=== PATIENT | female | born 1995 | race Caucasian/White ===

== ENCOUNTER 2024-04-26 13:59 | Emergency (ER) | payer BC, SELFPAY ==
[2024-04-26 14:02] VITALS: BP 123/75
[2024-04-26 14:23] LABS: % Basophils 0.2 % (0-2); % Immature Granulocytes 0.4 % (0-0.5); % Lymphocytes 2.3 % (20.5-51.1); % Monocytes 2.1 % (1.7-9.3); Absolute Lymphocytes 0.3 10^3/uL (1.2-3.4); Absolute Monocytes 0.2 10^3/uL (0.1-0.6); Absolute Neutrophils 10.2 10^3/uL (1.4-6.5); Hematocrit 42.1 % (37.0-47.0); Hemoglobin 14.1 g/dL (12.0-16.0); Mean Corp Hgb Conc. 33.5 g/dL (33.0-37.0); Mean Corpuscular Hgb 28.3 pg (27.0-31.0); Mean Corpuscular Volume 84.5 fL (81.0-99.0); Mean Platelet Volume 9.6 fL (7.4-10.4); Nucleated Red Blood Cells % 0 %; Platelet Count 252 10^3/uL (130-400); Red Blood Cell Count 4.98 10^6/uL (4.20-5.40); Red Cell Dist. Width 12.8 % (11.5-14.5); White Blood Cell Count 10.7 10^3/uL (4.8-10.8)
[2024-04-26 14:39] LABS: ALT (SGPT) 19 U/L (0-35); AST (SGOT) 20 U/L (14-36); Albumin 4.7 g/dl (3.5-5.0); Alkaline Phosphatase 89 U/L (38-126); Blood Urea Nitrogen 15 mg/dl (7-17); Carbon Dioxide 20 mmol/L (22-30); Chloride 102 mmol/L (98-107); Glucose 119 mg/dl (70-99); Potassium 4.3 mmol/L (3.5-5.1); Sodium 137 mmol/L (135-145); Total Bilirubin 0.9 mg/dl (0.2-1.3); Total Protein 7.8 g/dl (6.3-8.2); eGFR > 60.00
--- NOTE | 2024-04-26 15:05 | ED.GENMED ---
History of Present Illness
<FARHAD Ramírez - Last Filed: 04/27/24 10:25>
General
Chief Complaint: Abdominal Symptoms
Source: patient
Exam Limitations: none
Time Seen by Provider: 04/26/24 14:52
Nursing documentation reviewed up to this point in time: agreed with
History of Present Illness
History of Present Illness:
28 yr old female presents to the ER for evaluation. Patient reports she is 11 weeks and started vomiting around 1 AM and is vomited greater than 10 times. She also had diarrhea at 6 AM. She has been very nauseous since. She previously
had some nausea with this was on performed Zofran however because the nausea started becoming worse yesterday she called her [facility] [employer] [facility] [facility] and was given 8 mg of Zofran. She did take 8 mg Zofran at 12:30 PM. She has not vomited since then but
she does complain of feeling very nauseous and feels like she has to have more diarrhea. She complains of feeling achy all over and has low back pain. She denies any fever chills back pain. She denies any fever chills. Her 1-year-old also had a
little bit of vomiting and diarrhea.
Patient has a history of 1 prior with complications. Patient had TRAP sequence in the past. She has a normal ultrasound with this . She is followed at [facility].
Past History
<FARHAD Ramírez - Last Filed: 04/27/24 10:25>
Past History
ED Past Medical History: None
ED Past Surgical History: None
Social History
Tobacco: Non-smoker
Alcohol: None
Personal: Single
Living: with family
Employment: Student
Review of Systems
<FARHAD Ramírez - Last Filed: 04/27/24 10:25>
Review of Systems
Allergies reviewed?: Yes
Other source history: family
All Other Systems: ROS reviewed and negative except as documented in HPI and ROS
Constitutional: Reports no symptoms; Denies fever or chills
EENT: Reports no symptoms
Respiratory: Reports no symptoms
Cardiac: Reports no symptoms
ABD/GI: Reports nausea and vomiting
Musculoskeletal: Reports other (body aches )
Skin: Reports no symptoms
Neurological: Reports no symptoms
Psychiatric: Reports no symptoms
Phy Exam
<FARHAD Ramírez - Last Filed: 04/27/24 10:25>
General Physical Exam
General Presentation: no apparent distress
General age: appears stated age
General Skin: warm and dry
General Habitus: normal
General Mental: alert
General Hydration: appears well hydrated
Cardiovascular Exam
Cardiovascular Exam: regular rate/rhythm, no murmur and normal peripheral pulses
Pulmonary Exam
Pulmonary Exam: lungs clear and no respiratory distress
Neurological Exam
Neurological Exam: alert and oriented x3
Musculoskeletal Exam
Musculoskeletal Exam: full ROM
Skin Exam
Skin Exam: normal color and warm/dry
Course
<FARHAD Ramírez - Last Filed: 04/27/24 10:25>
Orders/Labs/Results
Orders:
Orders
04/26/24 14:13
Complete Blood Count/With Diff Urgent
Comprehensive Metabolic Panel Urgent
HCG, Beta Quantitative [Beta HCG Quantitative] Urgent
Is this a screen?: No
04/26/24 15:34
Ondansetron Injectable [Zofran] 4 mg IV NOW STA
04/26/24 15:45
Heart Tones ONCE
04/26/24 16:45
0.9% Sodium Chloride 1000 ml [Nss] 1,000 ml IV BOLUS
04/26/24 17:03
US 1st Trimester Urgent
Comment:
Reason For Exam: lower abd cramping
04/26/24 18:35
Ondansetron Injectable [Zofran] 4 mg IV NOW STA
04/26/24 19:00
UA Reflex to Culture [Urinalysis Reflex To Culture] Urgent
Date Specimen was Collected: 04/26/24
Time Specimen was Collected: 18:25
Urine Microscopic Reflex Cult Urgent
Urine Culture Urgent
PARAM Source: U
Specimen Description:
Date Specimen was Collected: 04/26/24
Time Specimen was Collected: 18:25
04/26/24 19:09
Vital Signs- Treatment ONCE
Frequency: Once
04/26/24 20:49
Urinalysis Reflex To Culture Urgent
Date Specimen was Collected: 04/26/24
Time Specimen was Collected: 20:48
Abnormal Lab Results
04/26/24 04/26/24 04/26/24
14:13 19:00 20:49
Absolute Neuts (auto) 10.2 H 10^3/uL
(1.4-6.5)
Absolute Lymphs (auto) 0.3 L 10^3/uL
(1.2-3.4)
Neutrophils % 95.0 H %
(42.2-75.2)
Lymphocytes % 2.3 L %
(20.5-51.1)
Carbon Dioxide 20 L mmol/L
(22-30)
Creatinine 0.5 L mg/dL
(0.6-1.0)
Glucose 119 H mg/dl
(70-99)
Urine Ketones 3+ A Trace A
(Negative) (Negative)
Ur Occult Blood Reflex 2+ A
(Negative)
Urine RBC 50-60 A /HPF
(0-2)
Urine Bacteria (Reflex) Moderate A
(Negative)
04/26/24 14:13
04/26/24 14:13
Vital Signs
Initial and Last Documented VS:
Initial Vital Signs
Temp Pulse Resp BP Pulse Ox
98.3 F 114 18 123/75 100
04/26/24 14:02 04/26/24 14:02 04/26/24 14:02 04/26/24 14:02 04/26/24 14:02
Last Documented Vital Signs
Temp Pulse Resp BP Pulse Ox
98.3 F 88 21 104/62 97
04/26/24 14:02 04/26/24 21:30 04/26/24 21:30 04/26/24 21:31 04/26/24 21:15
<Sarkis Beaulieu MD - Last Filed: 04/26/24 20:11>
Orders/Labs/Results
Orders:
Orders
04/26/24 14:13
Complete Blood Count/With Diff Urgent
Comprehensive Metabolic Panel Urgent
HCG, Beta Quantitative [Beta HCG Quantitative] Urgent
Is this a screen?: No
04/26/24 15:34
Ondansetron Injectable [Zofran] 4 mg IV NOW STA
04/26/24 15:45
Heart Tones ONCE
04/26/24 16:45
0.9% Sodium Chloride 1000 ml [Nss] 1,000 ml IV BOLUS
04/26/24 17:03
US 1st Trimester Urgent
Comment:
Reason For Exam: lower abd cramping
04/26/24 18:35
Ondansetron Injectable [Zofran] 4 mg IV NOW STA
04/26/24 19:00
UA Reflex to Culture [Urinalysis Reflex To Culture] Urgent
Date Specimen was Collected: 04/26/24
Time Specimen was Collected: 18:25
Urine Microscopic Reflex Cult Urgent
Urine Culture Urgent
PARAM Source: U
Specimen Description:
Date Specimen was Collected: 04/26/24
Time Specimen was Collected: 18:25
04/26/24 19:09
Vital Signs- Treatment ONCE
Frequency: Once
04/26/24 20:49
Urinalysis Reflex To Culture Urgent
Date Specimen was Collected: 04/26/24
Time Specimen was Collected: 20:48
Abnormal Lab Results
04/26/24 04/26/24 04/26/24
14:13 19:00 20:49
Absolute Neuts (auto) 10.2 H 10^3/uL
(1.4-6.5)
Absolute Lymphs (auto) 0.3 L 10^3/uL
(1.2-3.4)
Neutrophils % 95.0 H %
(42.2-75.2)
Lymphocytes % 2.3 L %
(20.5-51.1)
Carbon Dioxide 20 L mmol/L
(22-30)
Creatinine 0.5 L mg/dL
(0.6-1.0)
Glucose 119 H mg/dl
(70-99)
Urine Ketones 3+ A Trace A
(Negative) (Negative)
Ur Occult Blood Reflex 2+ A
(Negative)
Urine RBC 50-60 A /HPF
(0-2)
Urine Bacteria (Reflex) Moderate A
(Negative)
04/26/24 14:13
04/26/24 14:13
Vital Signs
Initial and Last Documented VS:
Initial Vital Signs
Temp Pulse Resp BP Pulse Ox
98.3 F 114 18 123/75 100
04/26/24 14:02 04/26/24 14:02 04/26/24 14:02 04/26/24 14:02 04/26/24 14:02
Last Documented Vital Signs
Temp Pulse Resp BP Pulse Ox
98.3 F 88 21 104/62 97
04/26/24 14:02 04/26/24 21:30 04/26/24 21:30 04/26/24 21:31 04/26/24 21:15
<FARHAD Ramírez - Last Filed: 04/27/24 10:25>
MDM/Problems Addressed
MDM/Problems Addressed:
Patient is an 11-week female who presents with nausea vomiting diarrhea and aches since 1:00 this morning. Her 1-year-old also has similar symptoms. She denies any vaginal bleeding. She does complain of some mild lower abdominal cramping
back discomfort and feels achy throughout her legs and body. She denies any fevers and is afebrile here.
She is followed by [facility] and had a normal ultrasound with this thus far. She does have uncomplicated in the past. Her labs unremarkable she was given Zofran and 2 L of fluids here in the ER now tolerating oral fluids.
Ultrasound shows a single live IUP of approximately 9 weeks and 0 days with a heart rate of 174.
Likely viral syndrome/gastroenteritis. Patient did have an episode of diarrhea here however she is nontoxic. Will check urine and if negative plan to discharge home. Patient does have Zofran at home discussed close outpatient follow-up with
[facility] [facility] and to return if any worsening of symptoms
<FARHAD Ramírez - Last Filed: 04/27/24 10:25>
*Critical Care Note
Total Time (30-74mins, 75-104mins- exclusive of procedures): Not Applicable
ED Attending Note
<FARHAD Ramírez - Last Filed: 04/27/24 10:25>
-
Portions of this chart may have been created with voice recognition software.� Occasional wrong word or��sound alike� substitutions may have occurred due to the inherent limitations of voice recognition software.
<Sarkis Beaulieu MD - Last Filed: 04/26/24 20:11>
ED Attending Note
Patient seen and examined by attending physician: Yes
I performed the substantive portion of visit, reviewed & personally made and approve the management plan that is documented in note by myself or TAL.: Yes
ED Attending Note:
Patient with recurrent vomiting since 1 AM. Some diarrhea. Patient's 1-year-old child has similar symptoms. No abdominal pain no vaginal bleeding. 11 weeks . Complicated first with a nonviable fetus and a twin. No
urinary symptoms no fever
On exam patient is nontoxic in no distress. Lungs are clear and equal. Heart regular rate and rhythm. Abdomen soft and nontender. Warm and dry. Perfusing well. Grossly nonfocal.
Ultrasound is stable. Labs are normal. Urine is contaminated. Clearly describing gastrointestinal enteritis like symptoms. Likely norovirus related. However with a contaminated urine we will try to repeat this. Patient is comfortable with
discharge to follow-up
Discharge Plan
Departure
Patient Disposition: Home (Routine Discharge)
Date of Disposition: 04/26/24
Time of Disposition: 21:22
Patient with high blood pressure during this ER visit?: No
Condition: Fair
Covid-19: Not Applicable
Discharge Problem:
Vomiting and diarrhea
Instructions: Diarrhea in teens and adults, Clear Liquid Diet, Nausea and Vomiting, Adult (DC)
Prescriptions:
No Action
prenat.vits,loida,thw-ivuo-yxlon Tablet
1 tab PO DAILY
docusate sodium [Colace] 100 mg Capsule
100 mg PO DAILY
oxycodone-acetaminophen 5-325 mg Tablet
1 tab PO Q4HPRN PRN (Reason: moderate pain) Qty: 12 0RF
ibuprofen 600 mg Tablet
600 mg PO Q6HPRN PRN (Reason: cramps) Qty: 30 0RF
Referrals:
Darian Lama DO [Family Provider] -
Activity Restrictions/Additional Instructions:
Clear liquids for the next 24 hours followed by bland solid foods. You may take Zofran as previously prescribed. Follow-up closely with your REG[facility] [employer] [facility] and return if any worsening of symptoms
Interventions
Interventions:
*Risk Screen - Suicide Last Done: 04/26/24 14:02
*General Assessment Last Done: 04/26/24 14:02
*Neglect/Abuse Screening Last Done: 04/26/24 21:40
ED- Fall Risk Assessment Last Done: 04/26/24 21:40
*ED COVID-19 Vaccine History Last Done: 04/26/24 14:02
*Nursing Disposition Last Done: 04/26/24 21:40
GI-Laxqen-Izahdkrhjk Assessment Last Done: 04/26/24 16:30
Discharge Date and Time
Discharge Date/Time: 04/26/24 21:40
Print Language: BURUNDI[place]
[2024-04-26] MEDS: ZOFRAN 4 MG IV ×2 (16:04→18:43)
[2024-04-26] MEDS: NSS 1000 IV (16:57)
[2024-04-26 18:00] VITALS: BP 115/64
[2024-04-26 19:11] LABS: Urine Albumin Trace (Neg - Trace); Urine Bilirubin Negative (Negative); Urine Character Clear (Clear); Urine Color Yellow; Urine Glucose Negative (Negative); Urine Ketone 3+ (Negative); Urine Leukocyte Negative (Negative); Urine Nitrite Negative (Negative); Urine Occult Blood 2+ (Negative); Urine Urobilinogen Negative (Neg - 1+); Urine pH 6.5 (5.0-9.0)
[2024-04-26 19:19] LABS: Urine Squamous Cell >30 /LPF (Few)
[2024-04-26 19:20] LABS: Urine Bacteria Moderate (Negative); Urine Red Blood Cell 50-60 /HPF (0-2); Urine White Cell 0-2 /HPF (0-5)
[2024-04-26 19:21] LABS: Urine Mucus Many
[2024-04-26 19:22] VITALS: BP 110/62
[2024-04-26 20:00] VITALS: BP 112/77
[2024-04-26 21:05] LABS: Urine Albumin Negative (Neg - Trace); Urine Bilirubin Negative (Negative); Urine Character Clear (Clear); Urine Color Yellow; Urine Glucose Negative (Negative); Urine Ketone Trace (Negative); Urine Leukocyte Negative (Negative); Urine Nitrite Negative (Negative); Urine Occult Blood Negative (Negative); Urine Specific Gravity 1.015 (<1.030); Urine Urobilinogen Negative (Neg - 1+)
[2024-04-26 21:31] VITALS: BP 104/62
== END 2024-04-26 21:40 | disposition home or self-care (01) ==
LOC: EMR 13:59
PROVIDERS: Nurse Practitioner; Student in an Organized Health Care Education/Training Program; EMERGENCY PHYSICIAN Emergency Medicine; FAMILY PHYSICIAN Family Medicine
DX: O21.9 Vomiting of pregnancy, unspecified (principal); O99.891 Other specified diseases and conditions complicating pregnancy; R19.7 Diarrhea, unspecified; Z3A.11 11 weeks gestation of pregnancy
CPT/HCPCS: 96374; 96361; 96376; 99284; 76801; 80053; 81003; 81015; 84702; 85025; 87086